=== PATIENT | male | born 1990 | race Caucasian/White ===

== ENCOUNTER 2023-11-13 16:38 | Emergency (ER) | payer MEDICAID ==
[~2023-11-13] VITALS: Ht 193 cm; Wt 217.7 kg
[2023-11-13 16:56] VITALS: TEMP 98.8
[2023-11-13] MEDS ORDERED: ALBU18HF2 INH (17:54)
[2023-11-13] MEDS ORDERED: BENZ-13 PO (17:54)
[2023-11-13 18:04] VITALS: BP 140/89; O2SAT 95
== END 2023-11-13 17:58 | disposition home or self-care (01) ==
LOC: ER 17:06
DX: R05.9 Cough, unspecified (principal)
CPT/HCPCS: 71045-TC